=== PATIENT | female | born 1960 | race African-American/Black ===

== ENCOUNTER 2022-09-16 13:27 | Emergency (ER) | payer SELFPAY ==
[2022-09-16] MEDS: Sodium Chloride 0.9% 1,000 ML IV SCH (13:55)
[2022-09-16] MEDS: cloNIDine 0.1 MG Tab PO ONE (14:10)
[2022-09-16 14:36] LABS: ANION GAP 8.8 meq/L (7-15); CHLORIDE,CL 106 mmol/L (98-107); SODIUM,NA 143 mmol/L (136-145)
[2022-09-16 14:38] LABS: ESTIMATED GFR 67 mL/min (>=60)
[2022-09-16 14:58] LABS: CORONAVIRUS COVID-19 NAA NEGATIVE (NEGATIVE); RESPIRATORY SYNCYTIAL VIR NAA NEGATIVE (NEGATIVE)
[2022-09-16] MEDS: Labetalol 20 MG/4 ML Syringe IVPUSH ONE ×2 (15:16→15:19)
[2022-09-16] MEDS: Sodium Chloride 0.9% 10 ML Syringe FLUSH PRN (15:18)
[2022-09-16] MEDS: amLODIPine 5 MG Tab PO ONE (16:00)
== END 2022-09-16 16:30 | disposition home or self-care (01) ==
LOC: LL.ED 13:27
DX: I10 Essential (primary) hypertension (principal); Z79.899 Other long term (current) drug therapy; Z20.822 Contact with and (suspected) exposure to COVID-19
CPT/HCPCS: 0241U; 36415; 80053; 81003; 82150; 83605; 83690; 83735; 83880; 84443; 84484; 85025; 93005; 93010; 96361; 96374; 99284; 99284-25; A9270-GY; J3490; J7030

== ENCOUNTER 2024-11-19 10:14 | Day surgery (SDC) | payer MEDICAID ==
[~2024-11-19 10:14] MED LIST: Midazolam 1 MG/ML 2 ML SDV ONE; Propofol 200 MG/20 ML SDV ONE; Sodium Chloride 0.9% 10 ML Syringe FLUSH PRN
[2024-11-19] MEDS: Lactated Ringers 1,000 ML IV SCH (10:59)
[2024-11-19] MEDS ORDERED: Propofol 200 MG/20 ML SDV IV ONE (11:20)
[2024-11-19] MEDS ORDERED: Glycopyrrolate 0.2 MG/ML SDV IVPUSH ONE (11:20)
== END 2024-11-19 12:52 | disposition home or self-care (01) ==
LOC: LL.SDS 10:14
PROVIDERS: ATTEND Surgery
DX: K29.50 Unspecified chronic gastritis without bleeding (principal); I10 Essential (primary) hypertension; K21.9 Gastro-esophageal reflux disease without esophagitis; Z79.899 Other long term (current) drug therapy
CPT/HCPCS: 00731; 43239; 82947; J1596; J2250; J2704; J7120